=== PATIENT | male | born 1965 | race Caucasian/White ===

== ENCOUNTER → 2020-10-23 14:08 | Outpatient (CLI) | payer OTHER, SELFPAY ==
--- NOTE | ~2020-10-23 | XR_ITS ---
EXAMINATION: XR chest 2V EXAM DATE: 10/23/2020 14:24 INDICATION: R06.00 - Dyspnea, unspecified. TECHNIQUE: Frontal and lateral projections of the chest obtained and reviewed. There is no prior lidia dy for comparison. FINDINGS: The lungs are clear. There are no pleural effusions. The cardiomediastinal silhouette is within normal limits. There is no pneumothorax suspected. The bones and soft tissues are unremarkab le. IMPRESSION: No acute cardiopulmonary findings. Reviewed, dictated and finalized at location B. NTOLOGICAL PHYSIOTHERAPIST
== END ==
PROVIDERS: PCP Family Medicine; Visit Provider Family Medicine
DX: R06.00 Dyspnea, unspecified (principal); R20.2 Paresthesia of skin; E78.00 Pure hypercholesterolemia, unspecified; Z82.62 Family history of osteoporosis; G47.19 Other hypersomnia; Z51.81 Encounter for therapeutic drug level monitoring; Z79.899 Other long term (current) drug therapy
CPT/HCPCS: 71046

== ENCOUNTER 2021-01-16 09:06 | Outpatient (CLI) | payer OTHER, SELFPAY ==
--- NOTE | 2021-02-04 09:07 | WPDHOMESLEEP ---
Sleep Study - Home Unattended Date of Study: 01/16/21 Ordering Provider: Sergio Dumont DO Interpreting Provider: Betty Duran MD Home Sleep Study Type: Apnea Link Air Height: 1.93 m Weight: 104.326 kg Body Mass Index: 28.0 Neck Circumference (inches): 17 [place]: 3 Reason for Sleep Study Snoring; tried CPAP 15 years ago, could not tolerate Sleep History Natalio Fernández is a 55 year old man who has a history of frequent snoring that is loud enough to bother others. He had sleep apnea diagnsed 15 years ago but did not tolerate CPAP. He does not awaken from sleep feeling short of breath or awaken at night with heartburn, belching or coughing. He occasionally has trouble sleep with a cold. He does not gasp for breath at night. He rarely has breathing problems at night observed by others. He does not sweat excessively at night or notices heart pounding or beating irregularly at night. He does not fall asleep during the day, does not fall asleep involuntarily or while driving. He does not have loss of muscle tone was strong emotion. He does not have daytime difficulties due to excessive sleepiness, he is a professor. He does not feel paralyzed on waking or falling asleep nor does he have vivid dreamlike scenes upon awakening or falling asleep. He is not afraid to go to sleep. He rarely has nightmares. He rarely remembers his dreams. He frequently has racing thoughts. He rarely feels sad, depressed or anxious. He rarely has muscular tension. He does not notice part of his body jerking and he does not kick at night. He does not have crawling or aching feelings in his legs. He does not have any kind of leg pain at night. He does not have morning jaw pain. He occasionally grind his teeth at night. He rarely is bothered by pain during the day, rarely awakened by pain at night. He rarely wakes up feeling stiff in the morning with sore achy muscles or pain in the neck and spine. He has gained 10 lb in the last year. He has seasonal allergies. Normal bedtime is 11:00 p.m. falling asleep within 10 minutes. He wakes twice at night to urinate. He stays awake a few minutes and returns to sleep, waking between 6 and 7 during the week. His weekend schedule is the same. He estimates getting 7-8 hours of sleep at night. He does not take naps. He feels refreshed most mornings. Habits: Never smoked tobacco. Caffeine 24 oz per day. No alcohol or recreational drugs. [facility] Past Medical History Medical History Allergies Daytime hypersomnolence Elevated cholesterol Elevated cholesterol with elevated triglycerides Encounter for long-term (current) use of other medications Encounter for medical screening examination Exertional dyspnea Family history of osteoporosis Low serum vitamin D Paresthesia lower extremity refer to neurology Paresthesia of lower extremity Screening PSA (prostate specific antigen) Tinea cruris Family History Family History Mother Family history of diabetes mellitus in first degree relative Father Lung cancer Grandparent Lung cancer Social History Social History Smoking status: Never smoker Alcohol intake: never Medications Home Medications Medication Instructions Recorded Confirmed Type atorvastatin 20 mg tablet 20 mg PO DAILY #90 tablet 11/17/20 11/17/20 Rx cholecalciferol (vitamin D3) 1,250 1,250 mcg PO WEEKLY #14 cap 11/17/20 11/17/20 Rx mcg (50,000 unit) capsule Sleep Procedure This test was performed using 4 channel monitoring including respiratory effort channel, snoring channel, heart rate channel, and oxygen saturation channel. This study was scored using CMS guidelines. Sleep Architecture Not applicable for home sleep test. Respiratory Analysis The recording time is 8 hours 44 minutes. Anjana jones
[2021-02-04 09:29] VITALS: BMI 28.0
== END 2021-01-16 09:07 | disposition home or self-care (01) ==
LOC: ANHCSM 09:06
PROVIDERS: PCP Family Medicine; Visit Provider Family Medicine
DX: G47.33 Obstructive sleep apnea (adult) (pediatric) (principal)
CPT/HCPCS: 95806

== ENCOUNTER 2021-02-23 13:46 | Outpatient (CLI) | payer OTHER, SELFPAY ==
--- NOTE | 2021-02-25 13:44 | WPDPFTINT ---
PFT Interpretation This PFT met all criteria for ATS standards and reproducibility FEV/FVC post bronchodilator 78% FEV1 104% FVC 103% TLC 104% RV 86% RV/TLC 30% DLCO 98% when adjusted for alveolar volume but not adjusted for hemoglobin Flow volume loops were normal Impression: Normal PFT. Clinical correlation is advised. PFT Procedure Performed PFT Procedure Performed Plethysmography (Lung Vol) Diffusing Cap (DLCO) Flow Vol Loop Spirometry w/o Bronchodil
== END 2021-02-23 13:47 | disposition home or self-care (01) ==
PROVIDERS: PCP Family Medicine; Visit Provider Internal Medicine Cardiovascular Disease
DX: R06.00 Dyspnea, unspecified (principal)
CPT/HCPCS: 94375; 94726; 94729

== ENCOUNTER → 2021-03-06 12:34 | Outpatient (CLI) | payer OTHER, SELFPAY ==
--- NOTE | ~2021-03-06 | MR_ITS ---
EXAMINATION: MR shoulder LT wo con DATE: 03/06/2021 13:38 INDICATION: Left shoulder pain TECHNIQUE: Magnetic resonance imaging (MRI) of the left shoulder was performed without intravenous co ntrast. Sequences included axial PD-weighted FS FSE, coronal oblique PD-weighted FS FSE, coronal obli que T2-weighted FS FSE, sagittal PD-weighted FS FSE, and sagittal T1-weighted SE. COMPARISON: None. FINDINGS: Coracoacromial arch: The acromion undersurface is curved in morphology (type II). The coracoacromial ligament is normal. M inimal acromioclavicular osteoarthritis. Rotator cuff: Moderate distal supraspinatus tendinopathy without discrete tear. Subscapularis, infraspinatus and te res minor tendons are normal. Normal rotator cuff muscle bulk and signal. Biceps tendon, glenoid labrum and glenohumeral cartilage: Long head of the biceps tendon is normal. Glenoid labrum is normal. Glenohumeral cartilage is normal. Fluid: Physiologic amount of fluid in the glenohumeral joint and biceps tendon sheath. No loose osteochondra l bodies. Small amount of fluid in the subacromial/subdeltoid bursa consistent with mild bursitis. Bones: Bone alignment is normal. No fracture or pathologic marrow replacing process. IMPRESSION: 1. Moderate supraspinatus tendinopathy without discrete tear. 2. Mild subacromial/subdeltoid bursitis. Reviewed, dictated and finalized at location A.
== END ==
PROVIDERS: Visit Provider Orthopaedic Surgery
DX: M75.52 Bursitis of left shoulder (principal)
CPT/HCPCS: 73221

== ENCOUNTER 2021-06-06 08:07 | Outpatient (CLI) | payer OTHER, SELFPAY | END 2021-06-06 08:08 | disposition home or self-care (01) | LOC: ANHAUDASC 08:08 | PROVIDERS: PCP Family Medicine; Visit Provider Family Medicine | DX: H90.3 Sensorineural hearing loss, bilateral (principal) | CPT/HCPCS: 92557; 92567 ==

== ENCOUNTER 2021-06-11 08:23 | Emergency (ER) | payer OTHER, SELFPAY ==
--- NOTE | ~2021-06-11 | XR_ITS ---
EXAMINATION: XR ankle RT min 3V INDICATION: Right ankle pain TECHNIQUE: Four views of the right ankle are obtained. COMPARISON: None available FINDINGS: There is no fracture, dislocation, or subluxation. Soft tissue swelling is seen adjacent to the medial malleolus. There is mild osteoarthritis. IMPRESSION: 1. Soft tissue swelling without acute osseous abnormality. Reviewed, dictated and finalized at location B.
--- NOTE | 2021-06-11 08:28 | ED.LOWEXIN ---
HPI - Extremity Injury (Lower) General Chief Complaint: Extremity Injury, Lower Stated Complaint: Possible injury to Right Ankle and Knee Time Seen by Provider: 06/11/21 08:28 Source: patient and RN notes reviewed History of Present Illness HPI Narrative: Patient is a 56-year-old male who presents the urgent care with complaints of right medial ankle swelling and pain. Patient states that he was playing baseball on and got hit with the ball to the ankle. Patient states that someone twice his size then collided into his ankle. Patient states that he is also having some medial right knee swelling. Patient states that both injuries have exacerbated pain with ambulation or weightbearing. Patient states he has been taking ibuprofen and using ice/heat intermittently for pain relief. No other acute complaints. No acute distress noted. Patient aware of the plan of care. Some parts of this dictation were generated by voice recognition software and may contain typographical and/or grammatical inaccuracies. Related Data Home Medications Medication Instructions Recorded Confirmed aspirin 81 mg tablet,delayed 81 mg PO DAILY 02/13/21 02/22/21 release Allergies Allergy/AdvReac Type Severity Reaction Status Date / Time No Known Allergies Allergy Verified 06/11/21 08:35 Review of Systems Review of Systems: CONSTITUTIONAL: Denies fever, chills, or sweats. EYES: Denies visual changes, redness, or discharge. ENT: Denies rhinorrhea, congestion, sore throat, or otalgia. CARDIOVASCULAR: Denies chest pain, palpitations, or edema. RESPIRATORY: Denies cough or dyspnea. GASTROINTESTINAL: Denies abdominal pain, nausea, vomiting, or diarrhea. GENITOURINARY: Denies dysuria or hematuria. SKIN: Denies rash or itching. MUSCULOSKELETAL: Reports of swelling to the right medial knee and swelling and pain to the right medial ankle NEUROLOGIC: Denies headache, numbness, or weakness. All other systems reviewed are negative, except as documented in HPI. [facility] Past Medical History Medical History Allergies Daytime hypersomnolence Elevated cholesterol Elevated cholesterol with elevated triglycerides Encounter for long-term (current) use of other medications Encounter for medical screening examination Erectile dysfunction Exertional dyspnea Family history of osteoporosis Low serum vitamin D Paresthesia lower extremity refer to neurology Paresthesia of lower extremity Screening PSA (prostate specific antigen) Tinea cruris Surgical History Surgical History History of deviated nasal septum Family History Family History Mother Family history of diabetes mellitus in first degree relative Father Lung cancer Grandparent Lung cancer Social History Social History Smoking status: Never smoker Alcohol intake: never Substance use: never Substance use type: does not use Gender identity (if verbalized by the patient): Male Comments At the time of my signature, I reviewed and agree with the nursing past medical, surgical, social, and family history. There is no relevant family history pertinent to the patient complaint. Exam Narrative: GENERAL: This is a well-nourished, well-developed patient, in no apparent distress. HEAD: normocephalic, atraumatic. EYES: PERRL. Sclera clear/white. Vision is grossly intact. EARS: External ears normal NOSE: External nose normal with no obvious nasal discharge, nares without redness, no rhinorrhea. THROAT: Mucous membranes moist NECK: Neck supple CARDIOVASCULAR: Regular rate and rhythm without murmurs, gallops, or rubs. RESPIRATORY: Clear to auscultation. Breath sounds equal bilaterally. No wheezes, rales, or rhonchi. SKIN: warm, intact with no suspicious lesions or rash, good texture and turgor
[2021-06-11 08:30] VITALS: BP 145/93; PULSE 67; RESP 20; TEMP 36.5; O2SAT 99
== END 2021-06-11 09:00 | disposition home or self-care (01) ==
PROVIDERS: Emergency Provider Nurse Practitioner Family; PCP Family Medicine
DX: M25.561 Pain in right knee (principal); S90.01XA Contusion of right ankle, initial encounter; W21.03XA Struck by baseball, initial encounter; Y93.64 Activity, baseball; Z79.82 Long term (current) use of aspirin
CPT/HCPCS: 73610; 99213; G0463

== ENCOUNTER 2022-08-24 08:08 | Emergency (ER) | payer OTHER, SELFPAY ==
--- NOTE | 2022-08-24 08:11 | ED.HA ---
HPI - Headache General Chief Complaint: Headache Stated Complaint: PAIN IN BACK OF HEAD/FACIAL NUMBNESS/DROOPING Time Seen by Provider: 08/24/22 08:15 Source: patient, RN notes reviewed and old records reviewed Mode of arrival: ambulatory Limitations: no limitations History of Present Illness HPI Narrative: 57-year-old male presents to the [facility] with complaints of a headache since Friday intermittently, 3 days. Tried going to see his doctor either or Friday and was told his appointment was not until September. States he woke up with left-sided facial numbness and drooping. States last night when he went to bed he is sure he was okay. Left-sided arm mildly weakness. Denies any chest pain or shortness of breath. Denies any blurry vision MD elicited complaint: headache Pertinent past history: other (High cholesterol) Onset (ago): unknown Onset description: on awakening Location: right Quality & Timing: aching and intermittent Relieving factors: nothing Related Data Home Medications Medication Instructions Recorded Confirmed aspirin 81 mg tablet,delayed 81 mg PO DAILY 02/13/21 06/05/22 release Allergies Allergy/AdvReac Type Severity Reaction Status Date / Time No Known Allergies Allergy Verified 08/24/22 09:01 Review of Systems Review of Systems: All systems reviewed & are unremarkable except as noted in HPI and below Constitutional: Constitutional: Reports no additional constitutional complaints, Denies chills and Denies fever(s) Eyes: Eyes: Reports no additional eye complaints ENT: Reports system reviewed and no additional complaints, except as documented Cardiovascular: Cardiovascular: Reports no additional cardiovascular complaints Respiratory: Respiratory: Reports no additional respiratory complaints Gastrointestinal: Gastrointestinal: Reports no additional gastrointestinal complaints Musculoskeletal: Musculoskeletal: Reports no additional musculoskeletal complaints Integumentary/Breasts: Skin/Breast: Reports system reviewed and no additional complaints, except as docu Neurologic: Reports as per HPI, Reports headache(s) and Reports numbness (Left face with drooping) Psychiatric: Psychiatric: Reports no additional psychiatric complaints Allergic/Immunologic: Allergic/Immunologic: Reports no additional allergic/immunologic complaints PMFSH Past Medical History Medical History Allergies Daytime hypersomnolence Elevated cholesterol Elevated cholesterol with elevated triglycerides Encounter for long-term (current) use of other medications Encounter for medical screening examination Erectile dysfunction Exertional dyspnea Family history of osteoporosis Low serum vitamin D Paresthesia lower extremity refer to neurology Paresthesia of lower extremity Screening PSA (prostate specific antigen) Tinea cruris Surgical History Surgical History History of deviated nasal septum Family History Family History Mother Family history of diabetes mellitus in first degree relative Father Lung cancer Grandparent Lung cancer Social History Social History Smoking status: Never smoker Alcohol intake: never Substance use: never Substance use type: does not use Gender identity (if verbalized by the patient): Male Sexual Orientation (if Verbalized by the Patient): Straight or Heterosexual Comments At the time of my signature, I reviewed and agree with the nursing past medical, surgical, social, and family history. There is no relevant family history pertinent to the patient complaint. Exam Const: General: healthy appearing, no acute distress, alert and well nourished Nutritional Appearance: well nourished Orientation/consciousness: patient oriented x3 Bryant
[2022-08-24 08:14] VITALS: BP 162/105; PULSE 80; RESP 16; TEMP 36.8; O2SAT 100
== END 2022-08-24 08:15 | disposition short-term general hospital (02) ==
PROVIDERS: Emergency Provider Nurse Practitioner; PCP Family Medicine
DX: R29.810 Facial weakness (principal); R51.9 Headache, unspecified; E78.2 Mixed hyperlipidemia; Z79.82 Long term (current) use of aspirin
CPT/HCPCS: 99213; G0463

== ENCOUNTER 2022-08-24 08:28 | Emergency (ER) | payer OTHER, SELFPAY ==
--- NOTE | ~2022-08-24 | CT_ITS ---
EXAMINATION: CT brain wo con INDICATION: Headache and left facial droop COMPARISON: None TECHNIQUE: Standard unenhanced head CT. The dose-length product (DLP) was 681.00 mGy-cm. The mA was a djusted according to patient size. Iterative reconstruction technique was employed. FINDINGS: There is no intracranial hemorrhage, acute infarction, or abnormal mass lesion. The ventric les are normal. There is no abnormal mass effect or midline shift. The garcía-white matter differentiat ion is normal. The basal cisterns are patent. The orbits are normal. The paranasal sinuses, mastoids and calvarium are normal. IMPRESSION: 1. No acute intracranial abnormality. As per stroke protocol, I called these results to the Emergency Department, and discussed with Chace Jonas RN in the ED at 0854 hours on 08/24/2022. Reviewed, dictated and finalized at location A. IMPRESSION: 1. No acute intracranial abnormality. As per stroke protocol, I called these results to the Emergency Department, and discussed with Ellen Jonas RN in the ED at 0854 hours on 08/24/2022.
[2022-08-24 08:43] LABS: Glucose Point of Care 94 mg/dl (65-105)
[2022-08-24 08:44] VITALS: BP 131/93; PULSE 74; RESP 18; TEMP 37; O2SAT 99
[2022-08-24 08:53] VITALS: PULSE 81
--- NOTE | 2022-08-24 08:55 | ECG_ITS ---
Measurements Intervals [place] Rate: 66 P: 27 AL: 177 QRS: 26 QRSD: 104 T: 45 QT: 406 QTc: 428 Interpretive Statements SINUS RHYTHM NORMAL ECG NO PREVIOUS ECG AVAILABLE FOR COMPARISON Electronically Signed On 08-30-2022 16:33:40 CDT by Mario Alberto Robins M.D.
[2022-08-24 08:58] VITALS: BP 134/92; PULSE 72; RESP 18; O2SAT 99
[2022-08-24 09:01] VITALS: BP 141/98; PULSE 69; RESP 18; TEMP 37; O2SAT 98
--- NOTE | 2022-08-24 09:10 | ED.NEUROSD ---
HPI - Neuro Symptoms/Deficit General Chief Complaint: Suspected CVA Stated Complaint: Left Side Facial Drop Time Seen by Provider: 08/24/22 08:32 History of Present Illness HPI Narrative: Patient sent here from urgent care due to concern for stroke, patient had had headache with pain that seem to come from his right ear, and he felt like his left eye was twitching uncontrollably this morning Related Data Home Medications Medication Instructions Recorded Confirmed aspirin 81 mg tablet,delayed 81 mg PO DAILY 02/13/21 06/05/22 release Allergies Allergy/AdvReac Type Severity Reaction Status Date / Time No Known Allergies Allergy Verified 08/24/22 09:01 Review of Systems Review of Systems: CONST: No fever. HEENT: Twitching of left eye C/V: No chest pain RESP: No cough GI: No nausea or vomiting : No dysuria. M/S: No joint pain. SKIN: No rash. NEURO: Headache without any focal numbness or weakness in his arms or legs PSYCH: [No depression] PMFSH Past Medical History Medical History Allergies Daytime hypersomnolence Elevated cholesterol Elevated cholesterol with elevated triglycerides Encounter for long-term (current) use of other medications Encounter for medical screening examination Erectile dysfunction Exertional dyspnea Family history of osteoporosis Low serum vitamin D Paresthesia lower extremity refer to neurology Paresthesia of lower extremity Screening PSA (prostate specific antigen) Tinea cruris Surgical History Surgical History History of deviated nasal septum Family History Family History Mother Family history of diabetes mellitus in first degree relative Father Lung cancer Grandparent Lung cancer Social History Social History Smoking status: Never smoker Alcohol intake: never Substance use: never Substance use type: does not use Gender identity (if verbalized by the patient): Male Sexual Orientation (if Verbalized by the Patient): Straight or Heterosexual Exam Narrative: EXAMINATION OF ORGAN SYSTEMS/BODY AREAS: Constitutional: Vital signs per nursing GENERAL:[No acute distress, non-toxic appearing.] HEAD: Normal with no signs of head trauma; inability to wrinkle the right forehead EYES: Right-sided facial droop, inability to fully close right eye ENT: Right-sided facial droop LUNGS: Nonlabored breathing. HEART: [Regular rate and rhythm] ABD: [Soft], [nontender to palpation] EXT: Normal range of motion; no weakness or numbness in the upper or lower extremities SKIN: [No rashes or lesions.] NEURO: [Alert and oriented x 3. No gross focal sensory or strength deficits.] PSYCH: Normal affect Course Vital Signs Vital signs: Vital Signs Temperature 98.6 F 08/24/22 08:44 Pulse Rate 74 08/24/22 08:44 Respiratory Rate 18 08/24/22 08:44 Blood Pressure 131/93 H 08/24/22 08:44 Pulse Oximetry 99 08/24/22 08:44 Oxygen Delivery Room Air 08/24/22 08:44 Temperature 98.6 F 08/24/22 09:01 Pulse Rate 61 08/24/22 09:53 Respiratory Rate 18 08/24/22 09:53 Blood Pressure 126/89 08/24/22 09:53 Pulse Oximetry 100 08/24/22 09:53 Oxygen Delivery Room Air 08/24/22 08:44 MDM - Neuro Symptoms/Deficit MDM Narrative Medical decision making narrative: 57-year-old male who was sent here from urgent care due to concern that he had left sided facial droop and acute CVA. 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 CT head Noncon does not show any abnormality, he is treated for his headache and feels better afterwards. He discussed with the neurologist who agrees with plan to start patient on steroids, I have low concern fo
[2022-08-24] MEDS: predniSONE 20 MG TABLET 60 MG PO (09:27)
[2022-08-24] MEDS: METOCLOPRAMIDE HCL INJ 10 MG/2 ML VIAL IV PUSH (09:29)
[2022-08-24] MEDS: diphenhydrAMINE HCl INJ 50 MG/ML VIAL 25 MG IV PUSH (09:30)
[2022-08-24 09:53] VITALS: BP 126/89; PULSE 61; RESP 18; O2SAT 100
== END 2022-08-24 09:56 | disposition home or self-care (01) ==
PROVIDERS: Emergency Provider Emergency Medicine; PCP Family Medicine
DX: G51.0 Bell's palsy (principal); E78.2 Mixed hyperlipidemia; Z79.82 Long term (current) use of aspirin
CPT/HCPCS: 70450; 82948; 93005; 96374; 96375; 99284; J1200; J2765; J7512

== ENCOUNTER 2022-09-04 13:43 | Emergency (ER) | payer OTHER, SELFPAY ==
[2022-09-04 13:56] VITALS: BP 135/99; PULSE 73; RESP 18; TEMP 36.6; O2SAT 98
--- NOTE | 2022-09-04 13:56 | ED.HA ---
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 States this is the worst headache of his life, with pain across the back of his head. Unable to sleep due to the pain. He took ibuprofen today at 0500. Patient had presented on 08/24 with similar headache and right facial droop, was sent to the ER, head CT Noncon was negative for acute process. Endorses taking Steroid as directed from ER, completed the course on Sat 08/31 when he developed the head pain. Endorses photophobia and had nausea/vomiting 2 days ago. Continues to have right eye droop and has been using salve as directed. Denies vision changes, worsening numbness, weakness, confusion, or dizziness. He is scheduled with neurologist Dr Omalley tomorrow. Related Data Home Medications Medication Instructions Recorded Confirmed aspirin 81 mg tablet,delayed 81 mg PO DAILY 02/13/21 09/04/22 release Allergies Allergy/AdvReac Type Severity Reaction Status Date / Time No Known Allergies Allergy Verified 09/04/22 13:53 Review of Systems Review of Systems: CONSTITUTIONAL: Denies body aches, fever, chills, or sweats. EYES: Endorses photophobia Denies visual changes, redness, or discharge. ENT: Denies rhinorrhea, congestion, sore throat, or otalgia. CARDIOVASCULAR: Denies chest pain, palpitations, or edema. RESPIRATORY: Denies cough or dyspnea. GASTROINTESTINAL: Denies abdominal pain, nausea, vomiting, or diarrhea. SKIN: Denies rash MUSCULOSKELETAL: Denies back pain, joint pain, or myalgia. NEUROLOGIC: Endorses headache, denies numbness, tingling, or weakness, dizziness All systems reviewed & are unremarkable except as noted in HPI and below PMFSH Past Medical History Medical History Allergies Daytime hypersomnolence Elevated cholesterol Elevated cholesterol with elevated triglycerides Encounter for long-term (current) use of other medications Encounter for medical screening examination Erectile dysfunction Exertional dyspnea Family history of osteoporosis Low serum vitamin D Paresthesia lower extremity refer to neurology Paresthesia of lower extremity Screening PSA (prostate specific antigen) Tinea cruris Surgical History Surgical History History of deviated nasal septum Family History Family History Mother Family history of diabetes mellitus in first degree relative Father Lung cancer Grandparent Lung cancer Social History Social History Smoking status: Never smoker Alcohol intake: never Substance use: never Substance use type: does not use Gender identity (if verbalized by the patient): Male Sexual Orientation (if Verbalized by the Patient): Straight or Heterosexual Comments At time of signature, I have reviewed and agree with nursing past medical, surgical, social and family history unless otherwise noted. Please see nursing chart for further information. There is no relevant family history pertinent to the presenting complaint Exam Narrative: GENERAL: Well-appearing HEAD: Normocephalic, atraumatic. EYES: PERRLA, EOMI. ENT: Mucous membranes pink and moist. No rhinorrhea. TMs normal bilaterally. NECK: Normal AROM. Supple. CHEST: Clear to auscultation. HEART: Regular rate and rhythm. EXTREMITIES: Normal range of motion. No edema. NEURO: Alert and oriented x3. Right facial droop not sparing forehead, inability to raise right eyebrow, right eye incomplete closure with blinking; EOMs i
== END 2022-09-04 14:45 | disposition short-term general hospital (02) ==
PROVIDERS: Emergency Provider Nurse Practitioner Family; PCP Family Medicine
DX: R51.9 Headache, unspecified (principal); E78.2 Mixed hyperlipidemia; Z79.82 Long term (current) use of aspirin
CPT/HCPCS: 99213; G0463

== ENCOUNTER → 2022-09-06 15:35 | Outpatient (CLI) | payer OTHER, SELFPAY ==
--- NOTE | ~2022-09-06 | MR_ITS ---
EXAMINATION: MR brain/brain stem wo/w con DATE: 09/06/2022 16:19 INDICATION: Right facial weakness. TECHNIQUE: Magnetic resonance imaging (MRI) of the brain and brainstem was performed without and with 20 mL MultiHance intravenous contrast. COMPARISON: Head CT 08/24/2022 FINDINGS: There is no intracranial hemorrhage, acute infarction, or abnormal intracranial mass lesion . The ventricles are normal in size. The paranasal sinuses are clear. The orbits are normal. The mast oid air cells are normal. IMPRESSION: 1. Normal brain. Reviewed, dictated and finalized at location A. IMPRESSION: 1. Normal brain.
== END ==
PROVIDERS: PCP Family Medicine; Visit Provider Student in an Organized Health Care Education/Training Program
DX: R29.810 Facial weakness (principal)
CPT/HCPCS: 70553; A9577

== ENCOUNTER 2023-12-09 08:16 | Emergency (ER) | payer OTHER, SELFPAY ==
[2023-12-09 08:24] VITALS: BP 127/73; PULSE 69; RESP 20; TEMP 36.7; O2SAT 100
--- NOTE | 2023-12-09 08:34 | ED.SKABFB ---
HPI - Skin/Abscess/Foreign Bdy General Chief complaint: Skin/Abscess/Foreign Body Stated complaint: poss shingles/back and left side Time Seen by Provider: 12/09/23 08:34 Source: patient, RN notes reviewed and old records reviewed Mode of arrival: ambulatory Limitations: no limitations History of Present Illness HPI narrative: 58 year old male presents to express care with complaints of rash to mid back left of spine with burning type of pain which radiates to his side. Patient reports that pain started to his back on Friday night but noted rash yesterday which is small cluster of red vesicles only left side of mid spinal area, Patient reports that he has taken Ibuprofen for his discomfort.Patient reports that his pain does radiate to his left lateral side but o lesions noted to area. MD complaint: rash Onset (ago): day(s) (1) Location: back (left side of spine mid back) Severity: moderate Severity scale (1-10): 6 Treatments prior to arrival: NSAID Related Data Allergies Allergy/AdvReac Type Severity Reaction Status Date / Time No Known Allergies Allergy Verified 11/12/23 09:46 Review of Systems Review of Systems: CONSTITUTIONAL: Denies fever, chills, or sweats. CARDIOVASCULAR: Denies chest pain, palpitations, or edema. RESPIRATORY: Denies cough or dyspnea. SKIN: Reports rash to mid back left side of spine cluster of red raised vesicles MUSCULOSKELETAL: Denies joint pain or myalgia. NEUROLOGIC: Denies headache, numbness, or weakness. All systems reviewed & are unremarkable except as noted in HPI and below PMFSH Past Medical History Medical History (Updated 12/11/23 @ 08:50 by Corin Fong NP) Allergies Elevated cholesterol Elevated cholesterol with elevated triglycerides Encounter for long-term (current) use of other medications Encounter for medical screening examination Erectile dysfunction Exertional dyspnea Family history of osteoporosis Low serum vitamin D Paresthesia lower extremity refer to neurology Paresthesia of lower extremity Screening PSA (prostate specific antigen) Severe adverse reaction to COVID-19 vaccine reports experienced stroke like symptoms with right sided weakness and also some lasting weakness muscles of face. Patient reports saw neurologist at [facility]. He states also some swelling of heart related to vaccine. Tinea cruris Surgical History Surgical History History of deviated nasal septum Family History Family History Mother Family history of diabetes mellitus in first degree relative Father Lung cancer Grandparent Lung cancer Social History Social History Smoking status: Never smoker Alcohol intake: never Substance use: never Substance use type: does not use Lack of Transportation: No Current Housing: Decline to Answer Concerned About Future Housing: Decline to Answer Difficulty Paying Gas/Electric Bills: Decline to Answer Difficulty Paying for Meds: Decline to Answer Currently Unemployed: Decline to Answer Education: Decline to Answer Difficulty w/ Childcare or Family Care: Decline to Answer Living arrangements: with family Occupation/Education: occupation Gender identity (if verbalized by the patient): Male Sexual Orientation (if Verbalized by the Patient): Straight or Heterosexual Comments At time of signature, agree with nursing past medical, surgical, social and family history. There is no relevant family history pertinent to the presenting complaint Exam Narrative: GENERAL: Well-appearing, well-nourished, and in no acute distress. HEAD: Normocephalic, atraumatic. EYES: PERRLA, conjunctivae clear, and EOMI. ENT: Mucous membranes moist. Oropharynx without edema, erythema or lesions. NECK: Supple. No lymphadenopathy CHEST: Clear to auscultation. N
== END 2023-12-09 08:50 | disposition home or self-care (01) ==
PROVIDERS: Emergency Provider Registered Nurse; PCP Family Medicine
DX: B02.9 Zoster without complications (principal)
CPT/HCPCS: 99213; G0463